=== PATIENT | male | born 1980 | race Caucasian/White ===

== ENCOUNTER → 2017-01-13 | Outpatient (CLI) | payer OTHER | LOC: ECHO 12:26 | DX: R00.2 Palpitations (principal); R55 Syncope and collapse; R07.9 Chest pain, unspecified | CPT/HCPCS: ECHO; 93306 ==

== ENCOUNTER → 2017-01-18 | Outpatient (CLI) | payer OTHER | LOC: RT 11:59 | DX: R55 Syncope and collapse (principal) ==

== ENCOUNTER → 2021-06-17 | Outpatient (CLI) | payer OTHER | LOC: SLEEP 14:34 | DX: G47.00 Insomnia, unspecified (principal); R06.83 Snoring | CPT/HCPCS: 95810 ==